=== PATIENT | female | born 1945 | race Caucasian/White ===

== ENCOUNTER → 2017-05-08 | Outpatient (CLI) | payer MEDICARE ==
[~2017-05-08] MED LIST: ASPI1TAB PO; COUM2.5T17 PO; HYDR25TAB PO; LISI10TA4 PO; LIVA2TAB PO; MIRA33504 PO; PERC5TAB12 PO
--- NOTE | 2017-05-08 09:23 | REPMRS ---
Patient History The patient states she had a clinical breast exam in 04/2017. Patient is postmenopausal. No known family history of cancer. Digital Woman Screen Mammo: May 08, 2017 - Exam #: [id number] Bilateral CC and MLO view(s) were taken. Technologist: Agata Travis, Technologist Prior study comparison: October 25, 2015, digital woman screen mammo performed at [facility]. December 01, 2013, digital woman screen mammo performed at [facility]. August 10, 2010, bilateral screening mammogram performed at [facility]. FINDINGS: There are scattered fibroglandular densities. There is a moderate amount of residual fibroglandular tissue which is fairly symmetric. There is no interval development of dominant mass, architectural distortion, or clustered microcalcification typical of malignancy. There has been no change in the appearance of the mammogram from the prior studies. ASSESSMENT: BI-RADS/ACR category 1 mammogram. Negative. Recommendation Routine screening mammogram of both breasts in 1 year (for women over age 40). This mammogram was interpreted with the aid of an FDA-approved computer-aided dectection system. Electronically Signed By: Sotero Sharif MD 05/08/17 0923
== END ==
LOC: M WHC 08:22
PROVIDERS: ATTEND Nurse Practitioner Adult Health
DX: Z12.31 Encounter for screening mammogram for malignant neoplasm of breast (principal)

== ENCOUNTER → 2017-07-01 | Outpatient (CLI) | payer MEDICARE ==
--- NOTE | 2017-07-01 12:03 | REP ---
Clinical: Preoperative assessment . Comparison: None . Technique: PA and lateral. Findings: The mediastinum and cardiac silhouette are normal. Airway is patent and midline. The lung bui are clear and without acute consolidation, effusion, or pneumothorax. The skeletal structures are intact and normal. Impression: 1. No acute cardiopulmonary process. Signed by Eliel Charles MD 07/01/2017 11:54 A
[2017-07-01 12:25] LABS: INR 0.89; MEAN CORPUSCULAR HEMOGLOBIN 27.1 pg (27.0-33.0); MEAN CORPUSCULAR HGB CONC 32.5 g/dl (32.0-36.5); MEAN CORPUSCULAR VOLUME 83.4 fl (80.0-96.0); RED CELL DISTRIBUTION WIDTH 12.9 % (11.5-14.5); WHITE BLOOD COUNT 7.2 K/mm3 (4.0-10.0)
[2017-07-01 12:39] LABS: ALBUMIN 4.3 GM/DL (3.2-5.2); ALBUMIN/GLOBULIN RATIO 1.26 (1.00-1.93); ALKALINE PHOSPHATASE 77 U/L (45-117); ALT/SGPT 26 U/L (12-78); ANION GAP 6 MEQ/L (8-16); AST/SGOT 17 U/L (15-37); BILIRUBIN,TOTAL 0.3 MG/DL (0.2-1.0); BLOOD UREA NITROGEN 19 MG/DL (7-18); CALCIUM LEVEL 9.7 MG/DL (8.8-10.2); CARBON DIOXIDE LEVEL 31 MEQ/L (21-32); CHLORIDE LEVEL 102 MEQ/L (98-107); GLOMERULAR FILTRATION RATE > 60.0 (>45); GLUCOSE, FASTING 96 MG/DL (80-110); POTASSIUM SERUM 4.2 MEQ/L (3.5-5.1); SODIUM LEVEL 139 MEQ/L (136-145); TOTAL PROTEIN 7.7 GM/DL (6.4-8.2)
--- NOTE | 2017-07-01 13:57 | ECGEPIP ---
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
== END ==
LOC: M ADMPAT 10:36
PROVIDERS: ATTEND Orthopaedic Surgery
DX: Z01.818 Encounter for other preprocedural examination (principal); M17.12 Unilateral primary osteoarthritis, left knee; Z79.01 Long term (current) use of anticoagulants

== ENCOUNTER 2017-07-15 07:40 | Inpatient (IN) | payer MEDICARE ==
[2017-07-01 11:26] VITALS: BP 114/74
--- NOTE | 2017-07-10 11:02 | HPE ---
DATE OF ADMISSION: 07/15/2017 ATTENDING PHYSICIAN: Juliette Montanez MD CHIEF COMPLAINT: Left knee pain and stiffness. HISTORY: This is a pleasant 71-year-old female patient with progressively worsening knee pain and stiffness. She has failed to improve with conservative management. She has pain with weightbearing activities and activities of daily living. She has had gone through conservative management without much improvement. X-rays are notable for end-stage degenerative changes of the left knee. She has consented for left total knee arthroplasty by Dr. Montanez. Medical optimization, MARY Walter. ALLERGIES: STATINS. CURRENT MEDICATIONS: - hydrochlorothiazide 25 mg one tablet once per day - Livalo 4 mg 1/2 tablet once per day - lisinopril 10 mg one tablet once per day - aspirin 81 mg one tablet once per day. She will discontinue that 5 days prior to surgery. MEDICAL HISTORY: Includes symptomatic osteoarthritis of the left knee, gastric reflux disease, elevated cholesterol, hypertension. SURGICAL HISTORY: Is left knee scope and tonsils removed. FAMILY HISTORY: Noncontributory. SOCIAL HISTORY: She does not smoke. She does not use alcohol. REVIEW OF SYSTEMS: Denies fever or chills. Denies chest pain, shortness breath, or cough. Denies difficulty breathing. Denies abdominal pain. Denies nausea or vomiting. Notes persistent pain in her left knee with weightbearing activities and activities of daily living. PHYSICAL EXAMINATION: Today, reveals a well-nourished, well-developed alert female patient. She ambulates with a slight limping gait, favoring the left side. Her mood and affect appropriate for the situation. She sits comfortably on the examination room table. Examination of the left knee does reveal the skin to be intact. No erythema, edema, or ecchymosis. There is tenderness mainly posterior and laterally. The calf is soft, nontender to palpation. She can sensate light touch. No irritability with hip range of motion. Range of motion is 5 to about time 95 degrees. Neck is supple without adenopathy or jugular venous distention (JVD). Lungs are clear to auscultation without rales or wheeze. Heart: Regular rate and rhythm. Abdomen: Bowel sounds are present. Current vital signs: Height 5 feet.7 inches, weight 190 pounds, temperature 97.8, blood pressure 128/74, pulse 76, respirations at 16. LABORATORY DATA: PT 12.1, INR 0.98. Glucose 96, BUN 19, creatinine 0.9, sodium 139, potassium 4.2, ESR 11. CBC notable for a WBC count of 7.2, RBC count of 5.0, hemoglobin 13.7, hematocrit 42.1. Nasal cultures: No growth. Urine culture: No growth. Urinalysis within normal limits. Chest x-ray: No acute cardiopulmonary disease process noted. Electrocardiogram (EKG): Sinus rhythm with incomplete right bundle branch block. IMPRESSION: Symptomatic osteoarthritis of her left knee. PLAN: Consented for a left total knee arthroplasty by Dr. Montanez.
[~2017-07-15] VITALS: Ht 170.2 cm; Wt 87.1 kg
[2017-07-15] VITALS (8 sets, daily range): BP systolic 152–166; BP diastolic 80–86; O2SAT 94
[~2017-07-15 07:40] MED LIST changes: -COUM2.5T17 PO; -PERC5TAB12 PO
[2017-07-15] MEDS ORDERED: LR 1,000 ML IV ONE (07:45)
[2017-07-15] MEDS ORDERED: ACETAMINOPHEN 500 MG TAB PO ONE (08:00)
[2017-07-15] MEDS ORDERED: fentaNYL 100 MCG/2 ML INJECTION (J3010) As Ordered ONE ×2 (10:00→10:11)
[2017-07-15] MEDS ORDERED: MIDAZOLAM INJ 2 MG/2 ML VIAL (J2250) As Ordered ONE ×2 (10:00→10:11)
[2017-07-15] MEDS ORDERED: ceFAZolin 1GM INJ (J0690) As Ordered ONE (10:52)
[2017-07-15] MEDS ORDERED: EPINEPHrine INJ 1 MG/ML 1ML AMP As Ordered ONE (10:54)
[2017-07-15] MEDS ORDERED: BUPIVACAINE LIPOSOME/PF 1.3% 20 ML VIAL (13.3MG/ML)(EXPAREL) As Ordered ONE (10:54)
[2017-07-15] MEDS ORDERED: TRANEXAMIC ACID 100 MG/ML 10ML VIAL As Ordered ONE (10:54)
[2017-07-15] MEDS ORDERED: fentaNYL 100 MCG/2 ML INJECTION (J3010) IV ONE (11:15)
[2017-07-15] MEDS ORDERED: MIDAZOLAM INJ 2 MG/2 ML VIAL (J2250) IV ONE (11:15)
[2017-07-15] MEDS ORDERED: PROPOFOL 200 MG/20 ML VIAL As Ordered ONE (11:20)
[2017-07-15] MEDS ORDERED: LIDOCAINE 2% INJ 100 MG/5 ML SDV (FOR ANES.) As Ordered ONE (11:24)
[2017-07-15] MEDS ORDERED: ePHEDrine SULFATE 25 MG/5 ML(5MG/ML) SYRINGE As Ordered ONE (12:46)
[2017-07-15] MEDS ORDERED: ROPIvacaine 0.5% 30 ML INJECTION (J2795) ONE (12:52)
[2017-07-15] MEDS ORDERED: EPINEPHrine INJ 1 MG/ML 1ML AMP ONE (12:52)
[2017-07-15] MEDS ORDERED: EPIDURAL/PCA KEYS XX PRN (13:00)
[2017-07-15] MEDS ORDERED: NALOXONE INJ 0.4 MG/1 ML VIAL (J2310) IV PRN (13:00)
[2017-07-15] MEDS ORDERED: NALBUPHINE HCL 10 MG/ML AMP (J2300) IV PRN (13:00)
[2017-07-15] MEDS ORDERED: ONDANSETRON 4MG/2ML VIAL (J2405) IV PRN ×2 (13:00→13:30)
[2017-07-15] MEDS ORDERED: MORPHINE 1MG/ML IN 0.9% NACL 100ML IV BAG IV PRN (13:00)
[2017-07-15] MEDS ORDERED: diphenhydrAMINE INJ 50MG/ML VIAL (J1200) IV PRN (13:00)
[2017-07-15] MEDS ORDERED: MORPHINE 1MG/ML IN 0.9% NACL 100ML IV BAG As Ordered ONE (13:00)
[2017-07-15] MEDS ORDERED: LR 1,000 ML IV SCH (13:30)
[2017-07-15] MEDS ORDERED: FLEET ENEMA PR PRN (13:30)
[2017-07-15] MEDS ORDERED: ACETAMINOPHEN TAB 650MG DOSE (2X325MG) PO PRN (13:30)
[2017-07-15] MEDS ORDERED: HYDROmorphone HCL 1 MG/ML SYRINGE (J1170) IV PRN (13:30)
[2017-07-15] MEDS ORDERED: fentaNYL 100 MCG/2 ML INJECTION (J3010) IV PRN (13:30)
[2017-07-15] MEDS ORDERED: PERCOCET 5MG/325MG TAB PO PRN (13:30)
--- NOTE | 2017-07-15 15:43 | CR.PDOC ---
[facility] Consultation Consultation DATE OF CONSULTATION: PRIMARY CARE PHYSICIAN: Theresa Moreno REFERRING PROVIDER: Jatin Adams M.D. ATTENDING PHYSICIAN: Dr. Montanez REASON FOR CONSULTATION/CHIEF COMPLAINT: . Medical co-management HISTORY OF PRESENT ILLNESS: . 71-year-old female with past medical she of hypertension, dyslipidemia, and osteoporosis was admitted to [facility] for left total knee arthroplasty. At this time , the patient states that she is feeling relatively well and denies any fevers, chills, chest pain, shortness of breath, palpitations, abdominal pain, or any nausea/vomiting/diarrhea. She states that the pain in her left knee is relatively well controlled. The medicine team has been consulted for medical comanagement. ALLERGIES: Please see below. HOME MEDICATIONS: Please see below. PAST MEDICAL HISTORY: As noted above. PAST SURGICAL HISTORY: Tonsillectomy FAMILY HISTORY: Noncontributory SOCIAL HISTORY: Denies alcohol, tobacco, or illicit drug use REVIEW OF SYSTEMS: 10 point review of systems negative unless otherwise specified in HPI. PHYSICAL EXAMINATION: VITAL SIGNS: Please see below. GENERAL APPEARANCE: . Awake, alert, oriented HEENT: . Normocephalic, atraumatic RESPIRATORY: . Clear to auscultation bilaterally CARDIOVASCULAR: . Normal rate, normal S1, S2 ABDOMEN: . Soft, nontender, nondistended EXTREMITIES: . Left knee noted to be wrapped in surgical dressing, range of motion limited secondary to recent surgery. Neurovascularly intact distally LABORATORY DATA: Please see below. ASSESSMENT/PLAN: s/p Left Knee Arthroplasty Pain mgmt, DVT prophylaxis as per Ortho Hypertension, stable B/P Meds restarted Dyslipidemia Patient may take her own statin medication, as we do not have it on formulary here DVT prophylaxis as per Ortho Vital Signs/I&O Vital Signs Date Time Temp Pulse Resp B/P (MAP) Pulse Ox O2 Delivery O2 Flow Rate FiO2 07/15/17 15:33 12 07/15/17 13:50 88 153/66 (95) 99 Room Air 07/15/17 13:35 97.2 3 I&O- Last 24 Hours up to 6 AM 07/16/17 06:00 Intake Total 1825 ml Output Total 675 ml Balance 1150 ml Allergies Coded Allergies: No Known Drug Allergy (Verified Allergy, Unknown, 01/25/13) Home Medications Scheduled Aspirin (Aspirin 81) 81 Mg Tab, 81 MG PO QAM, #30 (Reported) Hydrochlorothiazide (Hydrochlorothiazide) 25 Mg Tab, 25 MG PO QAM, (Reported) Lisinopril (Lisinopril) 10 Mg Tab, 10 MG PO QAM, (Reported) Pitavastatin Calcium (Livalo) 2 Mg Tab, 2 MG PO QAM, (Reported) Polyethylene Glycol (Miralax) 1 Pow Pow, 17 GM PO 2XW, (Reported) FRIDAY AND FRIDAY JATIN GALVAN MD Jul 15, 2017 15:43
[2017-07-15] MEDS ORDERED: WARFARIN SOD 5 MG TAB PO ONE (17:00)
[2017-07-15] MEDS: LR 1,000 ML IV SCH ×2 (17:11→23:38)
[2017-07-15] MEDS: LISINOPRIL 10 MG TAB PO SCH (17:13)
[2017-07-16] VITALS (8 sets, daily range): BP systolic 110–181; BP diastolic 65–83; O2SAT 95
[2017-07-16 06:25] LABS: MEAN CORPUSCULAR HEMOGLOBIN 26.7 pg (27.0-33.0); MEAN CORPUSCULAR HGB CONC 32.3 g/dl (32.0-36.5); MEAN CORPUSCULAR VOLUME 82.5 fl (80.0-96.0); RED CELL DISTRIBUTION WIDTH 13.4 % (11.5-14.5); WHITE BLOOD COUNT 11.1 10^3/uL (4.0-10.0)
[2017-07-16 06:32] LABS: INR 1.05
[2017-07-16] MEDS ORDERED: ONDANSETRON 4 MG TAB (S0181) PO PRN (06:45)
[2017-07-16] MEDS ORDERED: PERCOCET 5MG/325MG TAB PO PRN (06:45)
[2017-07-16 06:50] LABS: ANION GAP 5 MEQ/L (8-16); BLOOD UREA NITROGEN 19 MG/DL (7-18); CALCIUM LEVEL 8.7 MG/DL (8.8-10.2); CARBON DIOXIDE LEVEL 29 MEQ/L (21-32); CHLORIDE LEVEL 104 MEQ/L (98-107); CREATININE FOR GFR 0.81 MG/DL (0.55-1.02); GLOMERULAR FILTRATION RATE > 60.0 (>45); GLUCOSE, FASTING 109 MG/DL (80-110); POTASSIUM SERUM 4.6 MEQ/L (3.5-5.1); SODIUM LEVEL 138 MEQ/L (136-145)
--- NOTE | 2017-07-16 08:10 | IPN ---
DATE: 07/16/2017 This is a 71-year-old female seen bedside status post left knee arthroplasty day #1. She rested well last night. No overnight issues. Her primary care provider is Theresa Nogueira. She denies chest pain, shortness breath, nausea, vomiting. No abdominal pain. OBJECTIVE: Temperature is 98, pulse is 94, respiratory rate is 18, blood pressure (BP) 110/65, SPO2 94% on room air. General: The patient appears to be in no acute distress, is alert, oriented. HEENT: Unremarkable. Lungs: Clear. Heart: Regular rate and rhythm. Abdomen: Soft. Extremities: No edema. No calf tenderness. LABORATORY DATA: White count is 11.1, hemoglobin 0.9, platelets 281. Sodium 138, potassium 4.6, chloride 104, bicarbonate 29, anion gap 5, BUN is 19, creatinine 0.81, and glucose 109. INR is 1.05. ASSESSMENT AND PLAN: 1. Left knee arthroplasty postoperative day #1. Pain management and deep venous thrombosis (DVT) prophylaxis. Physical therapy (PT) per orthopedics. 2. Hypertension, stable. Blood pressure medication has been resumed. 3. Dyslipidemia. Continue on statin therapy. 4. DVT prophylaxis. Per orthopedics. DISPOSITION: We will see how she does with physical therapy. Anticipate discharge within the next day or two.
[2017-07-16] MEDS: MOM 30ML SUSPENSION UDC PO SCH (08:45)
[2017-07-16] MEDS: MIRALAX *UNIT DOSE* 17GM PACKET PO SCH (08:45)
[2017-07-16] MEDS: LISINOPRIL 10 MG TAB PO SCH (08:46)
[2017-07-16] MEDS: hydroCHLOROthiazide 25 MG TAB PO SCH (08:46)
[2017-07-16] MEDS: SENOKOT S TAB PO SCH ×2 (08:46→19:53)
--- NOTE | 2017-07-16 08:47 | RO ---
DATE OF PROCEDURE: 07/15/2017 PREOPERATIVE DIAGNOSIS: Left knee degenerative arthritis. POSTOPERATIVE DIAGNOSIS: Left knee degenerative arthritis. PROCEDURE: Left total knee arthroplasty using a size 3 cruciate retaining cemented femoral component, with a size 3 tibial tray, with a 15 mm rotating polyethylene insert, with a 32 mm polyethylene button. All components were cemented. Prosthesis made by [employer]. SURGEON: Juliette Christianson MD CLAY THROWER: Mr. Brett Cruz ANESTHESIA: Spinal with left femoral nerve block. COMPLICATIONS: None. SPECIMEN: Joint surface. ESTIMATED BLOOD LOSS: Less than 20 mL. DESCRIPTION OF PROCEDURE: Antibiotics were given intravenously preoperatively, then successful left femoral nerve block and then spinal anesthetic was induced. Tourniquet placed left right upper thigh and not inflated. Left lower extremity was prepped and draped in usual sterile fashion. Leg elevated and the tourniquet inflated to 275 mmHg for 64 minutes. A longitudinal incision was then made for a medial parapatellar approach to the knee. This was done after appropriate time-out. The subperiosteal dissection around the proximal tibia and lateral tibial plateau was performed. Then, the patella was everted and the knee was flexed, and the anterior cruciate ligament (ACL) debrided, then the drill placed down the center of the femoral canal, followed by the distal femoral cutting block set at a 5 degree valgus cut, 10 mm resection level for a left knee. The block was pinned in position. The distal femoral cut performed. AP sizing jig measured about 3.4. Thus, I set it at that position and used a size 3 block. The external rotation jig was pinned in position, followed by the 4-in-1 block, and then we performed the anterior, posterior, chamfer cuts taking great care to protect the surrounding soft tissues. We then exposed the proximal tibia and used the extramedullary tibial guide to try to attempt to align to be parallel with mechanical axis of the tibia. We referenced off the medial tibial condyle to 4 mm at that position. We then pinned the block and then, the secondary check with the extramedullary toshia confirmed that we appeared to be parallel to the mechanical axis of the tibia. Proximal tibial osteotomy was then performed. The lamina fruit tester was placed laterally and we performed a completion medial meniscectomy with debridement of the posterior lateral osteophytes. Then, we placed the lamina fruit tester medially and performed a completion lateral meniscectomy and debridement of the posterior lateral osteophytes. The 10 mm spacer block fit but it was quite loose. The 12.5 was placed and she had better stability but a little bit loose in the lateral compartment. Thus, I went back and made sure I did a complete posterior medial release and removal of the osteophytes once again. Then, the 15 block fit nicely with good stability to varus and valgus stress testing both in flexion and in extension, and there was no excessive tightness in flexion. Thus, I felt this was the appropriate size components to use. I then exposed the proximal tibia and sized for a #3 tibial tray, which was pinned into position, followed by the reamer and broach, then the polyethylene was placed. I did remove a little bit of bone from the medial edge of the tibial plateau for an additional medial release. The femur was then placed, which is the trial, and it was pinned and placed into position. The knee was brought into extension. Very good stability with varus and valgus stress testing both in flexion and extension noted once again. We then everted the patella with the knee in .extension, performed patellar osteotomy, sized for a 32 button. The lug holes were drilled. Patellar component was placed and patellofemoral tracking was anatomic. We drilled the lug holes for the femur. Removed all the trial components. Exparel was injected in the posterior and medial and lateral capsules of the femur. Then, Mr. Cruz mixed the cement on the back table as I prepared the bony surfaces for cementing with a copious amount of pulsatile lavage irrigant solution. Mr. Cruz was also critical to the success of the procedure by helping to close the wound, helped to prepare the patient for surgery, helped to manipulate the knee in flexion and extension, and apply appropriate soft retraction so that could perform the operation smoothly and efficiently. Once all the bony surfaces were thoroughly dried, I cemented the tibial tray, removed excess cement and then placed the polyethylene. Then, cemented the femoral component and removed excess cement and brought the knee into extension. Cemented the patellar button and with a clamp until the cement had hardened after removing all the excess cement. Then, we copiously pulsatile lavage irrigated out the knee joint as we were waiting for the cement to harden, and then tranexamic acid was placed and remaining portion of Exparel was placed. Then, we closed the apex of the arthrotomy with two #1 PDS sutures, one #1 PDS was placed in the medial parapatellar area, then a double armed running Stratafix was placed in the capsule for closure. The, the tourniquet was released. We copiously irrigated again between layers. Closed the deep subdermal tissues with interrupted #2-0 PDS suture. The skin was closed with montserrat, covered by Adaptic, dry sterile bulky dressing. The tourniquet was released after we closed the capsule. Then, the patient was transferred to the recovery room in stable condition. There were no intraoperative complications.
[2017-07-16] MEDS: PERCOCET 5MG/325MG TAB PO PRN ×2 (08:48→19:57)
--- NOTE | 2017-07-16 09:55 | REP ---
AP AND LATERAL LEFT KNEE, TWO VIEWS: HISTORY: Knee replacement. The patient is status post left total knee replacement. There is no acute fracture or dislocation. A small amount of subcutaneous air and surgical montserrat are present in the overlying soft tissue. IMPRESSION: The patient is status post left total knee replacement. There is anatomic alignment. Signed by Shar Taylor MD 07/16/2017 10:04 A
[2017-07-16] MEDS ORDERED: WARFARIN SOD 5 MG TAB PO ONE (17:00)
[2017-07-16] MEDS ORDERED: LIVALO 4 MG PO SCH (21:00)
[2017-07-17] MEDS: PERCOCET 5MG/325MG TAB PO PRN ×2 (02:01→06:17)
[2017-07-17 06:00] VITALS: BP 154/80
--- NOTE | 2017-07-17 06:24 | IPN ---
DATE: 07/17/2017 SUBJECTIVE: A 71-year-old female seen at bedside resting comfortably. She denies any overnight issues. She did state that she had some left knee pain yesterday with working with physical therapy but that seems to be much better today. She denies chest pain, shortness breath, productive sputum, cough. States that her bowels are moving fine. She is voiding fine. She is tolerating her meals. OBJECTIVE: VITAL SIGNS: Temperature 99.3 with temperature maximum (T-max) of 100.5, possibly some atelectasis but she has no complaints, pulse 97, respiratory rate is 14, blood pressure 142/81, SPO2 97% on room air. GENERAL: The patient appears to be in no acute distress. Is alert, pleasant. HEENT: Unremarkable. LUNGS: Clear. HEART: Regular rate and rhythm. Normal S1, S2. ABDOMEN: Soft. LABORATORY DATA: Labs are pending. ASSESSMENT AND PLAN: 1. Left knee arthroplasty, postoperative day two. Pain management, deep venous thrombosis (DVT) prophylaxis, physical therapy per orthopedics. 2. Hypertension. Will continue to follow and modify blood pressure medications as needed. I am going to, however, mainly watch her blood pressure today to make sure pain control is adequate before making any adjustments. 2. Dyslipidemia. Continue statin therapy. 3. Deep venous thrombosis (DVT) prophylaxis per orthopedics. DISPOSITION: See how she does with physical therapy throughout the today. Anticipate home discharge within the next day or so.
[2017-07-17 08:09] LABS: MEAN CORPUSCULAR HEMOGLOBIN 26.5 pg (27.0-33.0); MEAN CORPUSCULAR HGB CONC 32.6 g/dl (32.0-36.5); MEAN CORPUSCULAR VOLUME 81.5 fl (80.0-96.0); RED CELL DISTRIBUTION WIDTH 13.5 % (11.5-14.5); WHITE BLOOD COUNT 9.8 10^3/uL (4.0-10.0)
[2017-07-17 08:23] LABS: INR 1.53
[2017-07-17 08:30] VITALS: BP 154/80
[2017-07-17] MEDS: MIRALAX *UNIT DOSE* 17GM PACKET PO SCH (08:30)
[2017-07-17] MEDS: MOM 30ML SUSPENSION UDC PO SCH (08:30)
[2017-07-17] MEDS: SENOKOT S TAB PO SCH (08:30)
[2017-07-17] MEDS: LISINOPRIL 10 MG TAB PO SCH (08:30)
[2017-07-17] MEDS: hydroCHLOROthiazide 25 MG TAB PO SCH (08:31)
[2017-07-17 08:42] LABS: ANION GAP 7 MEQ/L (8-16); BLOOD UREA NITROGEN 15 MG/DL (7-18); CALCIUM LEVEL 9.1 MG/DL (8.8-10.2); CARBON DIOXIDE LEVEL 27 MEQ/L (21-32); CHLORIDE LEVEL 100 MEQ/L (98-107); CREATININE FOR GFR 0.73 MG/DL (0.55-1.02); GLOMERULAR FILTRATION RATE > 60.0 (>45); GLUCOSE, FASTING 101 MG/DL (80-110); POTASSIUM SERUM 3.7 MEQ/L (3.5-5.1); SODIUM LEVEL 134 MEQ/L (136-145)
[2017-07-17] MEDS ORDERED: PERC5TAB12 PO (09:11)
[2017-07-17] MEDS ORDERED: COUM2.5T17 PO (09:11)
--- NOTE | 2017-07-22 15:20 | DSES ---
DATE OF ADMISSION: 07/15/2017 DATE OF DISCHARGE: 07/17/2017 ADMISSION DIAGNOSIS: Osteoarthritis left knee. ATTENDING PHYSICIAN: Dr. Russ oMntanez OTHER DIAGNOSES: Hypertension, elevated lipids, osteoporosis. DISCHARGE DIAGNOSIS: Osteoarthritis left knee status post left total knee arthroplasty. OPERATION PERFORMED: Left total knee arthroplasty. HISTORY: This is a 71-year-old female patient with progressively worsening left knee pain and stiffness. She failed to improve with conservative management. She was admitted for elective knee replacement on the left side. HOSPITAL COURSE: The patient was admitted on the day of surgery and underwent a left total knee arthroplasty which was uneventful. She did well in the postoperative period and her hospital course was without complications. She was up with physical therapy per their protocol and her pain was controlled. On day of discharge she is doing well, weightbearing as tolerated on her left lower extremity. She will move her left knee to prevent stiffness. She will use adjusted dose Coumadin and ISAEL stockings for 30 days postoperative for DVT prophylaxis. She will resume her preoperative medications and diet. She will use oral pain medications for pain control. She will followup in our office in 10-14 days for surgical followup. She was given instructions to include but not limited to wound monitoring and activity limitations. Please refer to the medical record for further details.
== END 2017-07-17 11:35 | disposition home health service (06) | DRG 470 ==
LOC: M OR 07:40 → M MS5PR 14:18
PROVIDERS: ADMIT Orthopaedic Surgery; ATTEND Orthopaedic Surgery
PROC: 0SRD0J9 Replacement of Left Knee Joint with Synthetic Substitute, Cemented, Open Approach (ICD-10-PCS; principal; 2017-07-15 10:45)
DX: M17.12 Unilateral primary osteoarthritis, left knee (principal); Z79.82 Long term (current) use of aspirin; Z79.899 Other long term (current) drug therapy; I10 Essential (primary) hypertension; E78.5 Hyperlipidemia, unspecified

== ENCOUNTER → 2017-07-21 | Outpatient (REF) | payer MEDICARE ==
[~2017-07-21] MED LIST changes: +COUM2.5T17 PO; +PERC5TAB12 PO
[2017-07-21 15:33] LABS: INR 1.56
== END ==
LOC: M SHH 14:59
PROVIDERS: ATTEND Nurse Practitioner Family
DX: Z79.01 Long term (current) use of anticoagulants (principal)

== ENCOUNTER → 2017-07-24 | Outpatient (REF) | payer MEDICARE ==
[2017-07-24 15:28] LABS: INR 1.68
== END ==
LOC: M SHH 14:51
PROVIDERS: ATTEND Nurse Practitioner Family
DX: Z79.01 Long term (current) use of anticoagulants (principal)

== ENCOUNTER → 2017-07-28 | Outpatient (REF) | payer MEDICARE ==
[2017-07-28 14:27] LABS: INR 2.47
== END ==
LOC: M SHH 14:05
PROVIDERS: ATTEND Nurse Practitioner Family
DX: Z51.81 Encounter for therapeutic drug level monitoring (principal); Z79.01 Long term (current) use of anticoagulants

== ENCOUNTER → 2017-07-31 | Outpatient (REF) | payer MEDICARE ==
[2017-07-31 14:45] LABS: INR 1.45
== END ==
LOC: M SHH 14:22
PROVIDERS: ATTEND Nurse Practitioner Family
DX: Z51.81 Encounter for therapeutic drug level monitoring (principal); Z79.01 Long term (current) use of anticoagulants

== ENCOUNTER → 2017-08-04 | Outpatient (REF) | payer MEDICARE ==
[2017-08-04 13:21] LABS: INR 1.11
== END ==
LOC: M SHH 12:43
PROVIDERS: ATTEND Nurse Practitioner Family
DX: Z51.81 Encounter for therapeutic drug level monitoring (principal); Z79.01 Long term (current) use of anticoagulants

== ENCOUNTER → 2017-08-07 | Outpatient (REF) | payer MEDICARE ==
[2017-08-07 16:01] LABS: INR 0.98
== END ==
LOC: M LAB REF 15:22
PROVIDERS: ATTEND Nurse Practitioner Family
DX: Z51.81 Encounter for therapeutic drug level monitoring (principal); Z79.01 Long term (current) use of anticoagulants

== ENCOUNTER → 2018-07-01 | Outpatient (CLI) | payer MEDICARE | LOC: M WHC 07:55 | DX: Z12.31 Encounter for screening mammogram for malignant neoplasm of breast (principal) | CPT/HCPCS: 77067 ==

== ENCOUNTER → 2019-07-06 | Outpatient (CLI) | payer MEDICARE ==
[~2019-07-06] MED LIST changes: -ASPI1TAB PO; +ASPI81TA26 PO
--- NOTE | 2019-07-06 15:29 | REPMRS ---
Patient History The patient states she had a clinical breast exam in 01/2019. Patient is postmenopausal and has history of melanoma skin cancer at age 73. No known family history of cancer. No Hormone Replacement Therapy 3D TOMOSYNTHESIS WAS PERFORMED. The [facility] lifetime risk for breast cancer is 3.9%. Digital Woman Screen Mammo: July 06, 2019 - Exam #: [id number] Bilateral CC and MLO view(s) were taken. Technologist: Agata Travis, Technologist Prior study comparison: July 01, 2018, bilateral digital woman screen mammo performed at [facility]. May 08, 2017, digital woman screen mammo performed at [facility]. FINDINGS: The breast tissue is heterogeneously dense. This may lower the sensitivity of mammography. There has been no change in the appearance of the mammogram from the prior studies. There is a moderate amount of residual fibroglandular tissue which is fairly symmetric. There is no interval development of dominant mass, areas of architectural distortion, or clustered microcalcification typical of malignancy. Assessment: BI-RADS/ACR category 1 mammogram. Negative Mammogram. Recommendation Routine screening mammogram in 1 year (for women over age 40). This mammogram was interpreted with the aid of an FDA-approved computer-aided dectection system. Electronically Signed By: Zoltan Lawton MD 07/06/19 [id number]
== END ==
LOC: M WHC 12:57
PROVIDERS: ATTEND Nurse Practitioner Adult Health
DX: Z12.31 Encounter for screening mammogram for malignant neoplasm of breast (principal); Z78.0 Asymptomatic menopausal state; Z85.828 Personal history of other malignant neoplasm of skin

== ENCOUNTER → 2020-07-28 | Outpatient (CLI) | payer MEDICARE ==
--- NOTE | 2020-07-28 09:41 | REPMRS ---
Patient History The patient states she had a clinical breast exam in 02/2020. Patient is postmenopausal and has history of melanoma cancer at age 73. No known family history of cancer. No Hormone Replacement Therapy 3D TOMOSYNTHESIS WAS PERFORMED. The [facility] lifetime risk for breast cancer is 3.7%. CHANDA Watson. Digital Woman Screen Mammo: July 28, 2020 - Exam #: [id number] Bilateral CC and MLO view(s) were taken. Technologist: Agata Travis, Technologist Prior study comparison: July 06, 2019, bilateral digital woman screen mammo performed at [facility]. July 01, 2018, bilateral digital woman screen mammo performed at [facility]. FINDINGS: The breast tissue is heterogeneously dense. This may lower the sensitivity of mammography. There has been no change in the appearance of the mammogram from the prior studies. There is a moderate amount of residual fibroglandular tissue which is fairly symmetric. There is no interval development of dominant mass, areas of architectural distortion, or clustered microcalcification typical of malignancy. Assessment: BI-RADS/ACR category 1 mammogram. Negative Mammogram. Recommendation Routine screening mammogram in 1 year (for women over age 40). This mammogram was interpreted with the aid of an FDA-approved computer-aided dectection system. Electronically Signed By: Zoltan Lawton MD 07/28/20 0941
== END ==
LOC: M WHC 08:29
PROVIDERS: ATTEND Nurse Practitioner Adult Health
DX: Z12.31 Encounter for screening mammogram for malignant neoplasm of breast (principal); Z85.828 Personal history of other malignant neoplasm of skin

== ENCOUNTER → 2021-09-19 | Outpatient (CLI) | payer MEDICARE ==
[~2021-09-19] MED LIST changes: +HYDR-3490 PO; -HYDR25TAB PO; +LISI10TA22 PO; -LISI10TA4 PO
== END ==
LOC: M WHC 08:10
PROVIDERS: ATTEND Nurse Practitioner Adult Health
DX: Z12.31 Encounter for screening mammogram for malignant neoplasm of breast (principal)

== ENCOUNTER → 2022-03-21 | Outpatient (REF) | payer MEDICARE ==
[2022-03-22 18:11] LABS: FOLATE 13.7 NG/ML
== END ==
LOC: M LAB REF 13:18
PROVIDERS: ATTEND Nurse Practitioner Adult Health
DX: N18.31 Chronic kidney disease, stage 3a (principal); N39.0 Urinary tract infection, site not specified

== ENCOUNTER → 2022-04-05 | Outpatient (CLI) | payer MEDICARE | LOC: M RAD 11:12 | PROVIDERS: ATTEND Nurse Practitioner Adult Health | DX: F03.90 Unspecified dementia, unspecified severity, without behavioral disturbance, psychotic disturbance, mood disturbance, and anxiety (principal) ==

== ENCOUNTER 2025-05-13 16:42 | Emergency (ER) | payer MEDICARE ==
[~2025-05-13] VITALS: Ht 170.2 cm; Wt 74.0 kg
[2025-05-13 16:45] VITALS: TEMP 97.4
[2025-05-13] MEDS ORDERED: MEMA10TA PO (17:01)
[2025-05-13] MEDS ORDERED: DONE10TA90 PO (17:01)
[2025-05-13] MEDS ORDERED: PITA4TAB2 PO (17:01)
[2025-05-13] MEDS ORDERED: ELIQ5TAB PO (17:01)
[2025-05-13] MEDS ORDERED: METO1TAB32 PO (17:01)
[2025-05-13 18:51] LABS: BASO # 0.0 10^3/uL (0.0-0.2); BASO % 0.5 % (0.0-1.0); EOS # 0.1 10^3/uL (0.0-0.5); EOS % 1.6 % (0.0-3.0); LYMPH # 2.1 10^3/uL (1.5-5.0); LYMPH % 32.7 % (24.0-44.0); MONO # 0.6 10^3/uL (0.0-0.8); MONO % 10.0 % (2.0-8.0); NEUTROPHILS # 3.5 10^3/uL (1.5-8.5); NEUTROPHILS % 54.9 % (36.0-66.0); PLATELET COUNT, AUTOMATED 222 10^3/uL (150-450)
[2025-05-13 19:10] VITALS: O2SAT 100
[2025-05-13 19:13] LABS: INR 1.14
[2025-05-13 19:22] LABS: ALT/SGPT 24.0 U/L (7.0-40); AST/SGOT 24.0 U/L (<34); CALCIUM LEVEL 9.2 MG/DL (8.3-10.6); CARBON DIOXIDE LEVEL 26.0 MMOL/L (20-31); CHLORIDE LEVEL 106.0 MMOL/L (98-107); CK-MB VALUE MASS 1.0 NG/ML (<3.6); CPK CREATINE PHOSPHOKINASE 55.0 U/L (34-145); CREATININE FOR GFR 0.9 MG/DL (0.55-1.30); GLOMERULAR FILTRATION RATE 65.8 (>39); MB/CK RELATIVE INDEX 1.81 (< OR =4); POTASSIUM SERUM 4.1 MMOL/L (3.5-5.1); SODIUM LEVEL 144.0 MMOL/L (136-145)
[2025-05-13 19:24] LABS: FREE T4 1.39 NG/DL (0.89-1.76)
[2025-05-13 20:22] VITALS: BP 168/108
[2025-05-13] MEDS: METOPROLOL TART 25 MG TABLET PO ONE (20:22)
[2025-05-13 20:53] LABS: KETONE, URINE AUTO RFX NEGATIVE (NEGATIVE); LEUKOCYTE ESTERASE UR AUTO RFX 2+ (NEGATIVE); MUCUS, URINE RFX SMALL (NEGATIVE); NITRITE, URINE AUTO RFX NEGATIVE (NEGATIVE); RBC, URINE AUTO RFX 2 /HPF (0-3); SQUAM EPITHELIAL CELL UR AURFX 0 /HPF (0-6); WBC, URINE AUTO RFX 17 /HPF (0-3)
[2025-05-13] MEDS ORDERED: DOCU100C16 PO (20:59)
[2025-05-13] MEDS ORDERED: BUSP5TA PO (20:59)
[2025-05-13] MEDS ORDERED: GENT1OI TOP (20:59)
[2025-05-13] MEDS ORDERED: HOME MED LIST COMPLETE! XX SCH (21:00)
[2025-05-13 21:24] LABS: CK-MB VALUE MASS 1.6 NG/ML (<3.6)
[2025-05-13 21:28] LABS: CPK CREATINE PHOSPHOKINASE 63.0 U/L (34-145); MB/CK RELATIVE INDEX 2.53 (< OR =4)
[2025-05-13] MEDS: cefTRIAXone SOD 1 GM in DEXTROSE 5% (D5W) ADV/MINI-BAG 50 ML IV ONE (21:30)
[2025-05-13] MEDS: NS 500 ML IV ONE (22:10)
[2025-05-13 23:09] VITALS: BP 122/59
[2025-05-13] MEDS ORDERED: CEFD300C PO (23:42)
== END 2025-05-14 00:10 | disposition home or self-care (01) ==
LOC: M ED 16:42
DX: I95.1 Orthostatic hypotension (principal); N39.0 Urinary tract infection, site not specified; R53.1 Weakness; I45.10 Unspecified right bundle-branch block; I10 Essential (primary) hypertension; I48.91 Unspecified atrial fibrillation; Z79.01 Long term (current) use of anticoagulants; Z79.2 Long term (current) use of antibiotics; Z79.899 Other long term (current) drug therapy
CPT/HCPCS: 51701; 70450; 71046; 80048; 80076; 81001; 82550; 82553; 84439; 84443; 84484; 85025; 85610; 85730; 87086; 93005; 93041; 94760; 96374; 99285; J0696

== ENCOUNTER 2025-05-16 11:16 | Emergency (ER) | payer MEDICARE ==
[~2025-05-16] VITALS: Ht 170.2 cm; Wt 72.7 kg
[~2025-05-16 11:16] MED LIST changes: +BUSP5TA PO; +CEFD300C PO; +DOCU100C16 PO; +DONE10TA90 PO; +ELIQ5TAB PO; +GENT1OI TOP; +MEMA10TA PO; +METO1TAB32 PO; +PITA4TAB2 PO
[2025-05-16 11:36] VITALS: BP 118/70; TEMP 97.7; O2SAT 96
== END 2025-05-16 13:36 | disposition left against medical advice (07) ==
LOC: M ED 11:16
DX: Z53.21 Procedure and treatment not carried out due to patient leaving prior to being seen by health care provider (principal)

== ENCOUNTER → 2025-05-28 | Outpatient (REF) | payer MEDICARE ==
[2025-05-28 10:06] LABS: APPEARANCE, URINE HAZY (CLEAR); BACTERIA, URINE AUTO NEGATIVE (NEGATIVE); BILIRUBIN, URINE AUTO NEGATIVE (NEGATIVE); BLOOD, URINE BLOOD NEGATIVE (NEGATIVE); CALCIUM OXALATE CRYSTALS SMALL; GLUCOSE, URINE (UA) AUTO NEGATIVE (NEGATIVE); GRANULAR CAST, URINE AUTO 1 /LPF; KETONE, URINE AUTO NEGATIVE (NEGATIVE); LEUKOCYTE ESTERASE, URINE AUTO NEGATIVE (NEGATIVE); MUCUS, URINE SMALL (NEGATIVE); NITRITE, URINE AUTO NEGATIVE (NEGATIVE); PROTEIN, URINE AUTO NEGATIVE (NEGATIVE); RBC, URINE AUTO 2 /HPF (0-3); SPECIFIC GRAVITY URINE AUTO 1.024 (1.002-1.035); SQUAMOUS EPITHELIAL CELL UR AU 1 /HPF (0-6); UROBILINOGEN, URINE AUTO 2.0 mg/dL (0.0-2.0); WBC, URINE AUTO 4 /HPF (0-3)
== END ==
LOC: M LAB REF 08:00
PROVIDERS: ATTEND Nurse Practitioner Family
DX: N39.0 Urinary tract infection, site not specified (principal)

== ENCOUNTER → 2025-07-19 | Outpatient (REF) | payer MEDICARE ==
[~2025-07-19] MED LIST changes: +REXU1TAB3 PO
== END ==
LOC: SKLAB6 13:20
PROVIDERS: ATTEND Family Medicine
DX: Z53.8 Procedure and treatment not carried out for other reasons (principal)

== ENCOUNTER → 2025-07-21 | Outpatient (REF) | payer MEDICARE ==
[2025-07-21 07:00] LABS: APPEARANCE, URINE TURBID (CLEAR); BACTERIA, URINE AUTO 2+ (NEGATIVE); BILIRUBIN, URINE AUTO NEGATIVE (NEGATIVE); BLOOD, URINE BLOOD 1+ (NEGATIVE); GLUCOSE, URINE (UA) AUTO NEGATIVE (NEGATIVE); KETONE, URINE AUTO NEGATIVE (NEGATIVE); LEUKOCYTE ESTERASE, URINE AUTO 2+ (NEGATIVE); NITRITE, URINE AUTO POSITIVE (NEGATIVE); PROTEIN, URINE AUTO 2+ mg/dL (NEGATIVE); RBC, URINE AUTO 31 /HPF (0-3); SPECIFIC GRAVITY URINE AUTO 1.020 (1.002-1.035); SQUAMOUS EPITHELIAL CELL UR AU 0 /HPF (0-6); UROBILINOGEN, URINE AUTO 0.2 mg/dL (0.0-2.0); WBC, URINE AUTO TNTC /HPF (0-3)
== END ==
LOC: SKLAB6 06:29
PROVIDERS: ATTEND Nurse Practitioner Adult Health
DX: R30.0 Dysuria (principal)

== ENCOUNTER → 2025-07-21 | Outpatient (REF) | payer MEDICARE | LOC: SKLAB6 01:05 | PROVIDERS: ATTEND Nurse Practitioner | DX: R41.0 Disorientation, unspecified (principal) ==

== ENCOUNTER → 2025-08-16 | Outpatient (REF) | payer MEDICARE ==
[2025-08-16 14:09] LABS: BACTERIA, URINE AUTO NEGATIVE (NEGATIVE); MUCUS, URINE LARGE (NEGATIVE); RBC, URINE AUTO 30 /HPF (0-3); SQUAMOUS EPITHELIAL CELL UR AU 4 /HPF (0-6); WBC, URINE AUTO TNTC /HPF (0-3)
== END ==
LOC: M SHH 12:44
PROVIDERS: ATTEND Nurse Practitioner Family
DX: N39.0 Urinary tract infection, site not specified (principal)

== ENCOUNTER 2025-09-17 16:43 | Inpatient (IN) | payer MEDICARE ==
[~2025-09-17] VITALS: Ht 172.7 cm; Wt 72.8 kg
[2025-09-17] MEDS: TETANUS/DIPHTH/ACEL. PERTUSSIS 0.5 ML SYR IM.IMMUN ONE (17:52)
[2025-09-17 18:39] LABS: BASO # 0.0 10^3/uL (0.0-0.2); BASO % 0.3 % (0.0-1.0); EOS # 0.1 10^3/uL (0.0-0.5); EOS % 1.4 % (0.0-3.0); LYMPH # 1.5 10^3/uL (1.5-5.0); LYMPH % 22.9 % (24.0-44.0); MONO # 0.6 10^3/uL (0.0-0.8); MONO % 9.2 % (2.0-8.0); NEUTROPHILS # 4.2 10^3/uL (1.5-8.5); NEUTROPHILS % 66.0 % (36.0-66.0); PLATELET COUNT, AUTOMATED 229 10^3/uL (150-450)
[2025-09-17 18:59] LABS: INR 1.14
[2025-09-17 19:03] LABS: CALCIUM LEVEL 8.6 MG/DL (8.3-10.6); CARBON DIOXIDE LEVEL 27.0 MMOL/L (20-31); CHLORIDE LEVEL 109.0 MMOL/L (98-107); CREATININE FOR GFR 0.75 MG/DL (0.55-1.30); GLOMERULAR FILTRATION RATE 81.4 (>39); POTASSIUM SERUM 4.3 MMOL/L (3.5-5.1); SODIUM LEVEL 146.0 MMOL/L (136-145)
[2025-09-17] MEDS ORDERED: ATIV1TAB10 PO (19:10)
[2025-09-17] MEDS ORDERED: ACET-683 PO (19:11)
[2025-09-17] MEDS ORDERED: HOME MED LIST COMPLETE! XX SCH (19:15)
[2025-09-17] MEDS ORDERED: ONDANSETRON 4MG/2ML VIAL IV PRN (19:45)
[2025-09-17] MEDS: METOPROLOL SUCC. 50 MG *XL* TAB PO ONE (20:49)
[2025-09-17] MEDS: traZODone 25MG PER 1/2 TABLET PO SCH (20:49)
[2025-09-17] MEDS: APIXABAN 5 MG TAB PO SCH (20:50)
[2025-09-18 12:30] VITALS: BP 133/71; TEMP 98.2; O2SAT 98
[2025-09-18] MEDS: METOPROLOL SUCC. 50 MG *XL* TAB PO SCH (13:11)
[2025-09-18 19:58] VITALS: BP 125/62; TEMP 99.2; O2SAT 97
[2025-09-18] MEDS: RAMELTEON 8 MG TAB PO SCH (20:34)
[2025-09-19] MEDS: ACETAMINOPHEN 325 MG TAB PO PRN (03:46)
[2025-09-19 04:45] VITALS: BP 130/79; TEMP 97.9; O2SAT 98
[2025-09-19 09:12] VITALS: BP 118/66; TEMP 98.7; O2SAT 98
[2025-09-20 06:18] VITALS: BP 144/77; TEMP 98.6; O2SAT 96
[2025-09-20 09:01] VITALS: BP 139/102
[2025-09-20] MEDS ORDERED: BISACODYL 10 MG SUPP PR PRN (11:00)
[2025-09-20] MEDS ORDERED: ONDANSETRON 4MG ORAL DISINTEGRATING TAB PO PRN (11:00)
[2025-09-20] MEDS: OLANZapine ORAL DISINTEGRATING TAB 5MG PO SCH (20:22)
[2025-09-20] MEDS: LORazepam 1 MG TAB PO PRN (20:37)
[2025-09-21] MEDS: MORPHINE 10 MG/0.5 ML ORAL CONCENTRATE SOLUTION U/D SL PRN (15:25)
[2025-09-21] MEDS: APIXABAN 2.5 MG TAB PO SCH (21:00)
[2025-09-22] MEDS: OLANZapine ORAL DISINTEGRATING TAB 5MG PO SCH (21:00)
[2025-09-25] MEDS: SCOPOLAMINE 1MG TRANSDERMAL PATCH TOP PRN (10:37)
[2025-09-25] MEDS: LORazepam 0.5 MG TAB PO PRN (18:55)
[2025-09-26] MEDS: MORPHINE 10 MG/0.5 ML ORAL CONCENTRATE SOLUTION U/D SL SCH (09:00)
[2025-09-26] MEDS: MORPHINE 10 MG/0.5 ML ORAL CONCENTRATE SOLUTION U/D SL PRN (11:15)
[2025-09-26] MEDS: HYOSCYAMINE SULFATE 0.125 MG SUBL TABLET PO PRN (12:29)
[2025-09-26] MEDS: LORazepam 1 MG TAB PO SCH (13:20)
[2025-09-27] MEDS: LORazepam 1 MG TAB PO PRN (00:58)
[2025-09-27] MEDS: ATROPINE SULFATE 1% OPHTH SOLN 2 ML BTL SL PRN (04:21)
== END 2025-09-27 11:05 | disposition expired | DRG 951 ==
LOC: M ED 16:43 → M ED INP 09-18 08:38 → M MS5PR 09-18 12:27 → OBSVTOIN 09-22 12:45
PROVIDERS: ADMIT Student in an Organized Health Care Education/Training Program; ATTEND Internal Medicine
DX: Z51.5 Encounter for palliative care (principal); F02.811 Dementia in other diseases classified elsewhere, unspecified severity, with agitation; I10 Essential (primary) hypertension; S01.01XA Laceration without foreign body of scalp, initial encounter; G31.83 Neurocognitive disorder with Lewy bodies; R54 Age-related physical debility; R57.1 Hypovolemic shock; I48.91 Unspecified atrial fibrillation; I46.9 Cardiac arrest, cause unspecified; E78.5 Hyperlipidemia, unspecified; M19.90 Unspecified osteoarthritis, unspecified site; Z66 Do not resuscitate; Z96.652 Presence of left artificial knee joint; Z79.899 Other long term (current) drug therapy; Z79.01 Long term (current) use of anticoagulants; W07.XXXA Fall from chair, initial encounter; Y92.019 Unspecified place in single-family (private) house as the place of occurrence of the external cause; Y93.89 Activity, other specified; Y99.8 Other external cause status